=== PATIENT | female | born 1965 | race Caucasian/White ===

== ENCOUNTER → 2016-08-03 | Outpatient (CLI) | payer OTHER ==
[~2016-08-03] MED LIST: CHOL10003 PO; CYCL10TA2 PO; HYDR-2666 PO; IBUP-1060 PO; IOHEXOL 180 MG/ML 10 ML VIAL. ONE; PARO40TA45 PO; POTA10CA PO; methylPREDNISolone ACETATE 40 MG/ML VIAL. ONE; methylPREDNISolone ACETATE 80 MG/ML VIAL. ONE
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
== END | disposition home or self-care (01) ==
LOC: PNCL 07:19
PROVIDERS: ATTEND Anesthesiology
DX: M51.16 Intervertebral disc disorders with radiculopathy, lumbar region (principal); J44.9 Chronic obstructive pulmonary disease, unspecified; M19.90 Unspecified osteoarthritis, unspecified site; F17.200 Nicotine dependence, unspecified, uncomplicated; Z90.710 Acquired absence of both cervix and uterus; Z83.3 Family history of diabetes mellitus
CPT/HCPCS: 62323; J1030; J1040

== ENCOUNTER → 2016-08-17 | Outpatient (CLI) | payer OTHER ==
--- NOTE | 2016-08-17 12:40 | PAIN ---
DATE OF SERVICE: 08/17/2016 DIAGNOSES: 1. Lumbar radiculopathy with lumbar degenerative disk disease. 2. Cervical radiculopathy with cervicalgia. HISTORY OF PRESENT ILLNESS: A 51-year-old female who returns for followup status post lumbar epidural steroid injection x 1. The patient reports about 50% improvement overall doing much better. She is very pleased with the progress of pain in low back, legs significantly decreased. The patient reports some pain in the base of the neck and shoulders, which is much more noticeable now and also some migraine headaches, which have been more frequent otherwise doing well with increased activity with greater ease and comfort and sleeping better at night. We discussed our last visit, the possibility of evaluating her cervical spine as well. She does have some significant radicular symptoms in the bilateral upper extremities, worse on the right. The patient reports her pain as a 3 on a scale of 10 and reports it is a constant aching pain in the base of the neck and shoulders as well as in the low back and legs. The patient reports no new motor or sensory deficits. No new bowel or bladder incontinence or other complaints. PHYSICAL EXAMINATION: VITAL SIGNS: The patient's blood pressure is 159/95, pulse is 91, respirations 20, temperature 98.9 degrees Fahrenheit. Weight is 181 pounds. GENERAL: The patient is awake, alert, oriented, appropriate, very pleasant demeanor. HEENT: Head shows normocephalic, atraumatic. Extraocular movements are intact, symmetrical. Oral cavity, mucous membranes are moist and pink. Dentition is intact. NECK: Shows anterior throat supple without palpable lymphadenopathy noted. Swallow reflex is symmetrical. CHEST: Shows normal on inspection. Breath sounds clear to auscultation bilaterally. HEART: Shows S1 and S2. Clear. No murmurs auscultated. ABDOMEN: Obese, soft, nontender, nondistended. No palpable organomegaly is noted. No rebound or guarding demonstrated. BACK: Shows spine grossly midline. Cervical paraspinous muscle shows some moderate tenderness with palpation in the inferior and lateral aspect of the trapezius as well as the inferior cervical paraspinous musculature, which is diffusely tender, but very firm and with more tenderness in the lateral trapezius, slightly more on the right than the left, but without radiation. Lower back shows moderate tenderness with palpation in the lower lumbar paraspinous musculature only again diffusely without radiation as well. EXTREMITIES: The patient's lower extremities showed deep tendon reflexes at 1+ in the patellar and tendo calcaneus tendons. Motor exam is strong with approximately 4 on a scale of 5 with right dorsiflexion, extension and 5/5 on the left. PLAN: Options were discussed with the patient. We will proceed with a second lumbar epidural steroid injection today with fluoroscopic guidance. Risks were again discussed including, but not limited to bleeding, infection, possibility of epidural hematoma, subsequent neurologic compromise, dural puncture, headaches, spinal cord and/or nerve damage, side effects of steroid medication and poor results regarding pain control. The patient understands and wishes to proceed. The patient will return to clinic in approximately 2 weeks for followup. She was counseled as to return appointment, activity level and side effects to be aware of, we will also order new MRI scan the cervical spine to better evaluate radicular symptoms ____ region as well. DIAGNOSIS: Lumbar radiculopathy with lumbar degenerative disk disease. PROCEDURE: Lumbar epidural steroid injection in translaminar approach at the L5-S1 level using C-arm fluoroscopic guidance, under sterile prep and drape and using local anesthetic. MEDICATIONS INJECTED: 120 mg Depo-Medrol plus 10 mL of preservative-free normal saline and 2 mL of Isovue contrast. CONDITION AT DISCHARGE: Stable. The patient tolerated procedure well, had no complications. KELLI PURVIS MD DR: NASIM/verónica JOB#: [id number] / [id number]
== END | disposition home or self-care (01) ==
LOC: PNCL 07:58
PROVIDERS: ATTEND Anesthesiology
DX: M51.16 Intervertebral disc disorders with radiculopathy, lumbar region (principal); M54.12 Radiculopathy, cervical region
CPT/HCPCS: 62323; J1030; J1040

== ENCOUNTER → 2016-08-24 | Outpatient (CLI) | payer OTHER ==
[~2016-08-24] MED LIST changes: -IOHEXOL 180 MG/ML 10 ML VIAL. ONE; -methylPREDNISolone ACETATE 40 MG/ML VIAL. ONE; -methylPREDNISolone ACETATE 80 MG/ML VIAL. ONE
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
== END | disposition home or self-care (01) ==
LOC: KCIC MRI 07:57
PROVIDERS: ATTEND Anesthesiology
DX: M47.22 Other spondylosis with radiculopathy, cervical region (principal); M41.83 Other forms of scoliosis, cervicothoracic region
CPT/HCPCS: 72141

== ENCOUNTER → 2016-08-31 | Outpatient (CLI) | payer OTHER ==
[~2016-08-31] MED LIST changes: +IOHEXOL 180 MG/ML 10 ML VIAL. ONE; +methylPREDNISolone ACETATE 40 MG/ML VIAL. ONE; +methylPREDNISolone ACETATE 80 MG/ML VIAL. ONE
--- NOTE | 2016-08-31 23:23 | PAIN ---
DATE OF SERVICE: 08/31/2016 DIAGNOSES: 1. Lumbar radiculopathy with lumbar degenerative disk disease. 2. Cervical radiculopathy with cervicalgia. HISTORY OF PRESENT ILLNESS: The patient is a 51-year-old female who returns for followup status post lumbar epidural steroid injection x 2. The patient did very well with this, reports about a 75% or more decrease in pain in her low back and legs, doing much better in this regards, still having some cramps in her toes; however, which is problematic and her main complaint today is neck and bilateral upper extremity pain, shoulders and upper extremities. The patient reports somewhat worse on the right than the left with radiation to the right arm and into the forearm occasionally, but much more noticeable now that her back is doing much better. The patient reports the pain in her neck ranges from 4-6 on a scale of 10 and is currently at 4 today and describes as aching, burning, sharp, dull, alternating, tight, cramping, burning, radiating, and constant. The patient reports no new motor or sensory deficits or other complaints. We did do an MRI scan of her cervical spine showing some generalized degenerative changes without significant stenosis or neural foraminal compromise. PHYSICAL EXAMINATION: VITAL SIGNS: Today, the patient's blood pressure 129/78, pulse 73, respirations are 18, and temperature 98.2 degrees Fahrenheit. Weight is 182 pounds. GENERAL: The patient is awake, alert, oriented, appropriate, very pleasant demeanor. HEENT: Shows normocephalic and atraumatic. Extraocular movements are intact and symmetrical. Oral cavity, mucous membranes are moist and pink. Dentition is intact. NECK: Shows anterior throat supple without palpable lymphadenopathy noted. Swallow reflex is symmetrical. CHEST: Shows normal on inspection. Breath sounds are clear to auscultation bilaterally. HEART: Shows S1 and S2 clear. ABDOMEN: Soft, nontender, and nondistended. No palpable organomegaly is noted. No rebound or guarding demonstrated. BACK: Shows spine grossly in the midline. Lumbar paraspinous muscle shows some very mild tenderness with palpation, but symmetrical. The patient's neck shows posterior cervical musculature moderately tender with palpation bilaterally in the posterior paraspinous musculature, but without atrophy or hypertrophy. The patient has significant tenderness with palpation in the superior medial and lateral trapezius greater on the right than the left, again symmetrical without specific trigger points or radiation of pain. The patient shows good rotational motion, but somewhat guarded with right and left lateral rotation as well as extension, but not with forward flexion. EXTREMITIES: Upper extremity showed deep tendon reflexes at 2+ in the biceps and triceps tendons. Motor exam is 5/5 with vial gauger strength, biceps and triceps flexion and equal. Options were discussed with the patient and the patient's old chart was reviewed as her current medication regimen and updated. Current review of systems updated today as well. We will proceed with a cervical epidural steroid injection with fluoroscopic guidance. Risks were again discussed including, but not limited to bleeding, infection, possibility of epidural hematoma, subsequent neurologic compromise, dural puncture, headaches, spinal cord and/or nerve damage, side effects of steroid medication and poor results regarding pain control. The patient understands and wishes to proceed. The patient will return to clinic in approximately 2 weeks for followup. She was counseled on return appointment, activity level and side effects to be aware of. DIAGNOSES: Cervical radiculopathy with cervical degenerative change and cervicalgia. PROCEDURE: Cervical epidural steroid injection using a C-arm fluoroscopic guidance under sterile prep and drape using local anesthetic at the C6-C7 level using a translaminar approach. MEDICATION INJECTED: Depo-Medrol 120 mg plus 5 mL of preservative-free normal saline and 2 mL of Isovue contrast. CONDITION ON DISCHARGE: Stable. The patient tolerated procedure well, had no complications. KELLI PURVIS MD DR: NASIM/verónica JOB#: [id number] / [id number]
== END | disposition home or self-care (01) ==
LOC: PNCL 07:39
PROVIDERS: ATTEND Anesthesiology
DX: M50.123 Cervical disc disorder at C6-C7 level with radiculopathy (principal)
CPT/HCPCS: 62321; J1030; J1040; 62323

== ENCOUNTER → 2016-11-09 | Outpatient (CLI) | payer OTHER ==
[~2016-11-09] MED LIST changes: -HYDR-2666 PO; +HYDR-2758 PO; -IOHEXOL 180 MG/ML 10 ML VIAL. ONE; -PARO40TA45 PO; +PARO40TA61 PO; -POTA10CA PO; +POTASSIUM CHLO10 MEQ PO; -methylPREDNISolone ACETATE 40 MG/ML VIAL. ONE; -methylPREDNISolone ACETATE 80 MG/ML VIAL. ONE
== END | disposition home or self-care (01) ==
LOC: PNCL 07:54
PROVIDERS: ATTEND Anesthesiology
DX: M51.16 Intervertebral disc disorders with radiculopathy, lumbar region (principal); M47.22 Other spondylosis with radiculopathy, cervical region
CPT/HCPCS: 99212

== ENCOUNTER → 2017-02-01 | Outpatient (CLI) | payer OTHER ==
[~2017-02-01] MED LIST changes: +BACL10TA PO; +GABA-586 PO; +TIOT18CA IH; +VITA0.4T8 PO
--- NOTE | 2017-02-01 13:04 | PAIN ---
DATE OF SERVICE: 02/01/2017 DATE OF SERVICE: 02/01/2017 DIAGNOSES: 1. Lumbar radiculopathy with lumbar degenerative disk disease. 2. Cervical radiculopathy with cervicalgia HISTORY OF PRESENT ILLNESS: This is a 51-year-old female who returns for followup status post both lumbar and cervical epidural steroid injections. Last lumbar injection was on 08/17/2016. The patient reports she did very well with about 75% improvement for almost 4 months following the injection. The patient reports that the pain is returning now in the low back, bilateral lower extremities, mostly radiating to posterior gluteus, posterior thighs, posterior lower legs and in L5-S1 distribution bilaterally, left equal to right. Essentially the patient reports it is worse with walking and standing, change in positions, radiating, constant, severe at times, tingling, burning with cramping, tight, shooting, aching pain, also has some tingling in the upper extremities and lower extremities. The patient reports the pain is 5 on a scale of 10 at its worst, 3 on average, and is about a 2 on a scale of 10 at its least. The patient reports when she is lying down in a recliner that is a better position for her. She feels most comfortable in that position. The patient reports it wakes her from sleep occasionally, but not every night. She can reposition, take pain medication, or get out of bed, and is able to get back to sleep. The patient reports no new motor or sensory deficits, no new bowel or bladder incontinence or other complaints. PAST MEDICAL HISTORY: Significant for COPD, emphysema, headaches, arthritis. PREVIOUS SURGERY: , hysterectomy, tonsillectomy. ALLERGIES: The patient is ALLERGIC TO XANAX AND IVORY SOAP. CURRENT MEDICATIONS: Include hydrocodone, cyclobenzaprine, promethazine, Paxil, Wellbutrin, Naprosyn and we have just added gabapentin 100 mg daily at night. FAMILY HISTORY: Significant for cancer, mental illness, diabetes and heart disease. SOCIAL HISTORY: The patient does not drink alcohol. She does smoke and is trying to quit, less than a pack a day now, , lives with her spouse and 1 grandchild who is 4 years old, who she is the primary caregiver and lives locally. The patient is employed currently. REVIEW OF SYSTEMS: The patient's review of systems is positive for those items mentioned in history of present illness. All systems reviewed and otherwise negative. It is complete, full and well documented on the patient's chart. PHYSICAL EXAMINATION: VITAL SIGNS: The patient's blood pressure is 126/87, pulse is 90, respirations 20, temperature 98.4 degrees Fahrenheit. Height 5 feet 8 inches, weighs 193 pounds. GENERAL: The patient is awake, alert, oriented, appropriate, very pleasant demeanor. HEENT: Head shows normocephalic, atraumatic. Extraocular movements are intact, symmetrical. Oral cavity, mucous membranes are moist and pink. NECK: Shows anterior throat supple without palpable lymphadenopathy noted. Swallow reflex is symmetrical. Neck shows full rotational motion of cervical spine with some minor tenderness with extension, but not with forward flexion. CHEST: Shows normal on inspection. Breath sounds are clear bilaterally. HEART: Shows S1 and S2 clear. No murmurs auscultated. ABDOMEN: Soft, obese, nontender, nondistended. No palpable organomegaly is noted. No rebound or guarding. BACK: Shows spine grossly midline. Normal appearing cervical lordotic curvature, thoracic kyphotic curvature, and lumbar lordotic curvature with inspection shows symmetrical musculature throughout the cervical, thoracic, paraspinous muscles in the lumbar distribution. With palpation shows some moderate tenderness at the inferior aspect of the cervical paraspinous musculature, but it is symmetrical. Again patient shows good rotational motion of cervical spine. Low back shows some moderate tenderness to palpation in the lower lumbar distribution bilaterally without radiation, without trigger points, without asymmetry. The patient shows full rotational motion of lumbar spine, both laterally greater than 10 degrees right and left as well as extension greater than 10 degrees, forward flexion at 45 degrees without difficulty. The patient's lower extremities showed deep tendon reflexes 1+ in the patellar and tendo calcaneus tendons. Motor exam is strong with 5/5 dorsiflexion and extension. The patient does have positive straight leg raise bilaterally at about 30-45 degrees, which is decreased with knee flexion, but not relieved. It is equal right and left. Essentially, the patient reports no tenderness with Gaenslen's and Kayode's maneuvers, which are negative bilaterally. EXTREMITIES: Upper extremities show deep tendon reflexes 2+ in the biceps and triceps tendons. Motor exam is strong with sheet metal fabricator strength rated at 5/5 as is biceps and triceps flexion. Peripheral pulses are 2+ radial, 1+ posterior tibial and dorsalis pedis pulses. No peripheral edema is noted bilaterally throughout. PLAN: Options were discussed with the patient and the patient's old chart was reviewed as her current medication regimen updated. Current review of systems updated today as noted and we will preauthorize the patient for a lumbar epidural steroid injection. She did very well with these in the past with about 4 months improvement of 75% or better in the pain. Now, radiating to once again returning in the L5-S1 dermatomal distribution bilaterally in the lower extremities, left essentially equal to the right. The patient will wait for preauthorization. We will try Medrol Dosepak in the meantime. The patient was given instruction as well as side effects to be aware of with medication and will follow up once preauthorization is obtained for a lumbar epidural steroid injection. KELLI PURVIS MD DR: NASIM/verónica JOB#: [id number] / [id number]
== END | disposition home or self-care (01) ==
LOC: PNCL 10:38
PROVIDERS: ATTEND Anesthesiology
DX: M51.16 Intervertebral disc disorders with radiculopathy, lumbar region (principal); F17.210 Nicotine dependence, cigarettes, uncomplicated
CPT/HCPCS: 99212

== ENCOUNTER → 2017-02-15 | Outpatient (CLI) | payer OTHER ==
[~2017-02-15] MED LIST changes: +IOHEXOL 180 MG/ML 10 ML VIAL. ONE; +methylPREDNISolone ACETATE 40 MG/ML VIAL. ONE; +methylPREDNISolone ACETATE 80 MG/ML VIAL. ONE
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
== END | disposition home or self-care (01) ==
LOC: PNCL 11:44
PROVIDERS: ATTEND Anesthesiology
DX: M51.16 Intervertebral disc disorders with radiculopathy, lumbar region (principal); Z88.6 Allergy status to analgesic agent; Z88.8 Allergy status to other drugs, medicaments and biological substances
CPT/HCPCS: 62323; J1030; J1040

== ENCOUNTER → 2017-03-01 | Outpatient (CLI) | payer OTHER ==
[~2017-03-01] MED LIST changes: -IOHEXOL 180 MG/ML 10 ML VIAL. ONE; -methylPREDNISolone ACETATE 40 MG/ML VIAL. ONE; -methylPREDNISolone ACETATE 80 MG/ML VIAL. ONE
== END | disposition home or self-care (01) ==
LOC: PNCL 08:09
PROVIDERS: ATTEND Anesthesiology
DX: M51.36 Other intervertebral disc degeneration, lumbar region (principal)
CPT/HCPCS: 99212

== ENCOUNTER → 2017-03-01 | Outpatient (CLI) | payer OTHER ==
--- NOTE | 2017-03-01 09:29 | PAIN ---
DATE OF SERVICE: 03/01/2017 DIAGNOSES: 1. Lumbar radiculopathy with lumbar degenerative disk disease. 2. Cervical radiculopathy with cervicalgia. HISTORY OF PRESENT ILLNESS: The patient is a 51-year-old female who returns for followup status post lumbar epidural steroid injection x 1. The patient reports about 65% improvement initially for the first week and about 50% improvement for another week. After the 2-week period, the pain has been returning now at about 25% improvement overall in about 3 weeks now. The patient reports that she was doing very well initially with decreased pain in low back and her bilateral lower extremities, again worse on the right than the left, but pain in the bilateral lower extremities radiating into the posterior gluteus, posterior thigh, posterior lower leg, lateral lower leg as well as on top of the foot in essentially L5-S1 distribution, again worse on the right side. The patient reports radiating constant, becomes unbearable at times now over the past few days and cramping, burning, tingling, aching, sharp, tight and shooting pain rated at a 4 on a scale 10 at its worse, it is 2-3 on average and at least a 2 today. The patient reports that she is doing very well after the injection, but the pain is now returning with increased activity. The patient reports it wakes her from sleep occasionally, sleeps about 4 to 5 hours a night. She can easily change positions. She still sleeps in a reclining chair. The patient reports no new motor or sensory deficits, no new bowel or bladder incontinence or other complaints. PHYSICAL EXAMINATION: VITAL SIGNS: Today, the patient's blood pressure 122/43, pulse 70, respirations 16, temperature 98.6 degrees Fahrenheit, height 5 feet 8 inches, weight is 196 pounds. GENERAL: Awake, alert, oriented, appropriate, very pleasant demeanor. HEENT: Head shows normocephalic, atraumatic. Extraocular movements intact, symmetrical. Oral cavity, mucous membranes are moist and pink. Dentition is intact. CHEST: Shows normal on inspection. Breath sounds are clear to auscultation bilaterally. HEART: Shows S1 and S2 clear. No murmurs auscultated. ABDOMEN: Soft, nontender, nondistended. BACK: Shows spine grossly in midline. Lumbar paraspinous musculature shows some [id number] tenderness with palpation diffusely bilaterally without atrophy, hypertrophy. The patient shows good rotational motion of the lumbar spine, both laterally as well as extension and flexion without significant difficulty. LOWER EXTREMITIES: Showed deep tendon reflexes at 2+ in the patellar, 1+ tendo calcaneus tendons. Motor exam is 5/5 with dorsiflexion, extension, quadriceps and hamstring flexion. Peripheral pulses are 1+ posterior tibial and symmetrical. Straight leg raise noted to be positive bilaterally about 30-45 degrees on the right and 45 degrees on the left and both are decreased with knee flexion. Options were discussed with the patient and the patient's old chart was reviewed as her current medication regimen updated. Current review of systems updated today as well, and we will proceed with a preauthorization for a second lumbar epidural steroid injection. She did very well initially with the first month, again with radicular pain, right greater than left in the L5-S1 distribution. The patient will continue doing some stretching and strengthening exercises as she is doing already and walking daily. I encouraged her to increase activity as tolerated. She will return to clinic once authorization is obtained for a second lumbar epidural steroid injection at that time. KELLI PURVIS MD DR: NASIM/verónica JOB#: [id number] / [id number]
--- NOTE | 2017-03-01 10:25 | RAD ---
DATE: 03/01/2017 EXAM: DIGITAL DIAGNOSTIC BILATERAL HISTORY: Dimpling of the breasts. COMPARISON: Outside examination 4 years ago This study was interpreted with the benefit of Computerized Aided Detection (CAD). FINDINGS: Breast Density: FATTY The Breast Parenchyma is primarily fatty replaced. Breast parenchyma level density A.. No mass is seen. No suspect calcifications are seen. There is not been a significant change compared to the previous exam IMPRESSION: Benign findings BI-RADS CATEGORY: 2 BENIGN FINDING(S) RECOMMENDED FOLLOW-UP: 12M 12 MONTH FOLLOW-UP PQRS compliance statement: Patient information was entered into a reminder system with a target due date 03/01/2018 for the next mammogram. Mammography is a sensitive method for finding small breast cancers, but it does not detect them all and is not a substitute for careful clinical examination. A negative mammogram does not negate a clinically suspicious finding and should not result in delay in biopsying a clinically suspicious abnormality. "Our facility is accredited by the [employer] Mammography Program."
== END | disposition home or self-care (01) ==
LOC: MAMMO 09:46
PROVIDERS: ATTEND Family Medicine
DX: M51.16 Intervertebral disc disorders with radiculopathy, lumbar region (principal); R23.4 Changes in skin texture; R92.2 Inconclusive mammogram
CPT/HCPCS: G0204; 77066

== ENCOUNTER → 2017-03-29 | Outpatient (CLI) | payer OTHER ==
--- NOTE | 2017-03-29 18:57 | PAIN ---
DATE OF SERVICE: 03/29/2017 DIAGNOSES: 1. Lumbar radiculopathy with lumbar degenerative disk disease. 2. Cervical radiculopathy with cervicalgia. HISTORY OF PRESENT ILLNESS: The patient is a 51-year-old female who returns for followup status post lumbar epidural steroid injections x 2. The patient reports about 75% improvement initially with the last injection in 03/15. Over the past 3 weeks, the pain is beginning to return, but only very gradually and is still about a 50% improvement overall. The patient reports still pain in the low back, worse on the right side, but in the bilateral lower extremities, across the low back and the posterior gluteus, posterior thigh, posterior calf, lateral thighs as well with some cramping in the left leg, but pain is worse on the right leg. The patient reports as aching, sharp, dull, tight, shooting, cramping, stabbing, burning, tingling, constant and becoming more constant, radiating somewhat severe and becoming unbearable at times, usually only with walking, standing, changing positions; better with sitting or lying down, but awakens her from sleep occasionally, not every night. She needs the repositioning to get back to sleep without difficulty and she has been sleeping in a recliner over the past few days as the pain has been returning to a fairly significant extent. The patient reports it is a 4 on a scale of 10 at its worst, is a 3-4 on average and 2-3 at its least and is a 3 this morning. The patient reports no new motor or sensory deficits, no new bowel or bladder incontinence or other complaints. PHYSICAL EXAMINATION: VITAL SIGNS: The patient's blood pressure 121/77, pulse 75, respirations 16, temperature is 98.8 degrees Fahrenheit. Weight is 194 pounds. GENERAL: The patient is awake, alert, oriented, appropriate, has a very pleasant demeanor. HEENT: Shows normocephalic, atraumatic. Extraocular movements are intact and symmetrical. Oral cavity shows mucous membranes are moist and pink. Dentition is intact. NECK: Shows anterior throat supple without palpable lymphadenopathy noted. Swallow reflex is symmetrical. CHEST: Shows normal on inspection. Breath sounds are clear to auscultation bilaterally. HEART: Shows S1 and S2 clear. ABDOMEN: Soft, nontender, nondistended. No palpable organomegaly is noted. No rebound or guarding demonstrated. MUSCULOSKELETAL: Back shows spine grossly in the midline. Normal appearing thoracic kyphosis and lumbar lordotic curvatures. Lumbar paraspinous musculature shows some moderate tenderness with palpation, but is symmetrical on inspection. No radiation of pain; however, no trigger points. The patient has good rotational motion both laterally as well as extension and flexion of lumbar spine without significant pain reported. Lower extremities show deep tendon reflexes at 1+ in the patellar and tendo-calcaneus tendons and are equal. Motor exam is strong with 5/5 dorsiflexion, extension, quadriceps and hamstring flexion. Straight leg raise noted to be mildly positive on the right side about 45 degrees, but is decreased with knee flexion. Left side is negative. Gaenslen's and Kayode's maneuvers are negative bilaterally. PLAN: Options were discussed with the patient and the patient's old chart was reviewed as her current medication regimen and updated. Current review of systems updated today as well and we will preauthorize the patient for a third lumbar epidural steroid injection, she did very well with the first 2 with some pain returning in a radicular fashion mostly in the L5-S1 dermatomes, greater on the right than the left, but present bilaterally. The patient will continue to do exercise and stretching and walking as best she can as she is doing this daily, even though it is becoming a shorter distance with pain. She will continue to do this. We will have her followup and plan on third injection in approximately 1 week. KELLI PURVIS MD DR: NASIM/verónica JOB#: [id number] / [id number]
== END | disposition home or self-care (01) ==
LOC: PNCL 08:06
PROVIDERS: ATTEND Anesthesiology
DX: M51.16 Intervertebral disc disorders with radiculopathy, lumbar region (principal)
CPT/HCPCS: 99212

== ENCOUNTER → 2017-04-12 | Outpatient (CLI) | payer OTHER ==
[~2017-04-12] MED LIST changes: +IOHEXOL 180 MG/ML 10 ML VIAL. ONE; +methylPREDNISolone ACETATE 40 MG/ML VIAL. ONE; +methylPREDNISolone ACETATE 80 MG/ML VIAL. ONE
--- NOTE | 2017-04-12 17:49 | PAIN ---
DATE OF SERVICE: 04/12/2017 DIAGNOSES: 1. Lumbar radiculopathy with lumbar degenerative disk disease. 2. Cervical radiculopathy with cervicalgia. HISTORY OF PRESENT ILLNESS: The patient is a 51-year-old female who returns for followup status post lumbar epidural steroid injection x 2. She did very well 75% improvement overall, still with some pain in the low back, bilateral lower extremities, somewhat worse on the right than the left, but had been doing fairly well. Pain returning again low back, bilateral lower extremities, radiating from the lumbar spine into the posterior gluteus, posterior lateral thighs, posterior lower legs into the calf, into the foot with tingling and numbness in the toes as well. The reports it is aching, sharp, dull, tight, shooting, stabbing, cramping, burning with tingling in the toes, radiating, becoming more severe, more constant and unbearable at times. The patient reports it is a 4 on a scale of 10 at its worst, 3 on average, and a 3 today and at its least. The patient reports it does not awaken her from sleep; however, she feels much better with lying down, sitting and worse with standing, walking, changing positions or bending, stooping or repetitive bending and flexing at the waist. The patient reports no new motor or sensory deficits, no new bowel or bladder incontinence or other complaints. PHYSICAL EXAMINATION: VITAL SIGNS: Today, the patient's blood pressure is 136/71, pulse 80, respirations are 16, temperature is 98.6 degrees Fahrenheit, height is 5 feet 7 inches, weighs 196 pounds. GENERAL: The patient is awake, alert, oriented, appropriate, very pleasant demeanor. HEENT: Head shows normocephalic, atraumatic. Extraocular muscles are intact and symmetrical. Oral cavity: Mucous membranes are moist and pink. Dentition is intact. NECK: Shows anterior throat supple without palpable lymphadenopathy noted. Swallow reflex is symmetrical. CHEST: Shows normal on inspection. Breath sounds are clear to auscultation bilaterally. HEART: S1, S2 clear. No murmurs auscultated. ABDOMEN: Soft, nontender, nondistended. No palpable organomegaly is noted. No rebound or guarding demonstrated. BACK: Shows spine grossly in midline, normal-appearing thoracic kyphosis and lumbar lordotic curvature, mild small tattooing in the lumbar distribution. Lumbar paraspinous muscle shows symmetrical on inspection with palpation shows moderate tenderness, but only diffusely bilaterally in the lumbar paraspinous musculature on the lower lumbar distribution without radiation. No tenderness over the spinous processes, sacrum or sacroiliac regions. The patient has good rotational motion of lumbar spine, both laterally greater than 10 degrees right and left as well as extension and forward flexion without difficulty. EXTREMITIES: Lower extremities show deep tendon reflexes 1+ in the patellar and tendo calcaneus tendons are equal. Motor exam is strong with 5/5 dorsiflexion, extension, quadriceps and hamstring flexion and symmetrical as well. Peripheral pulses are 1+ in the posterior tibial and dorsalis pedis pulses. No peripheral edema is noted. No clubbing, no cyanosis. Lower extremities are warm and dry to touch, equal in color and appearance. Options were discussed with the patient. The patient's old chart was reviewed as her current medication regimen and updated. Current review of systems is updated today as well. We will proceed with a third in the series of lumbar epidural steroid injection with fluoroscopic guidance today. Risks were again discussed including, but not limited to bleeding, infection, possibility of epidural hematoma, subsequent neurologic compromise, dural puncture, headaches, spinal cord and/or nerve damage, side effects of steroid medication and poor results regarding pain control. The patient understands and wished to proceed. The patient will return to clinic in approximately 2 weeks for followup. She was counseled on return appointment, activity level and side effects to be aware of. DIAGNOSIS: Lumbar radiculopathy with lumbar degenerative disk disease. PROCEDURES: Lumbar epidural steroid injection, translaminar approach at the L5-S1 level using C-arm fluoroscopic guidance under sterile prep and drape using local anesthetic. MEDICATION INJECTED: A total of 120 mg Depo-Medrol plus 10 mL preservative-free normal saline and 2 mL of Isovue for contrast. CONDITION AT DISCHARGE: Stable. The patient tolerated the procedure well, had no complications. KELLI PURVIS MD DR: NASIM/verónica JOB#: [id number] / [id number]
== END | disposition home or self-care (01) ==
LOC: PNCL 07:55
PROVIDERS: ATTEND Anesthesiology
DX: M51.16 Intervertebral disc disorders with radiculopathy, lumbar region (principal); M54.12 Radiculopathy, cervical region; Z88.8 Allergy status to other drugs, medicaments and biological substances
CPT/HCPCS: 62323; J1030; J1040

== ENCOUNTER → 2017-09-09 | Outpatient (CLI) | payer OTHER | END | disposition home or self-care (01) | LOC: PNCL 08:36 | DX: M51.16 Intervertebral disc disorders with radiculopathy, lumbar region (principal); Z87.891 Personal history of nicotine dependence | CPT/HCPCS: 99212 ==

== ENCOUNTER → 2017-09-20 | Outpatient (CLI) | payer OTHER ==
[~2017-09-20] MED LIST changes: -BACL10TA PO; -CHOL10003 PO; -CYCL10TA2 PO; -GABA-586 PO; -HYDR-2758 PO; -IBUP-1060 PO; +IOHEXOL 180 MG/ML 10 ML VIAL.; -IOHEXOL 180 MG/ML 10 ML VIAL. ONE; -PARO40TA61 PO; -POTASSIUM CHLO10 MEQ PO; -TIOT18CA IH; -VITA0.4T8 PO; +methylPREDNISolone ACETATE 40 MG/ML VIAL.; -methylPREDNISolone ACETATE 40 MG/ML VIAL. ONE; +methylPREDNISolone ACETATE 80 MG/ML VIAL.; -methylPREDNISolone ACETATE 80 MG/ML VIAL. ONE
== END | disposition home or self-care (01) ==
LOC: MRI 08:38
DX: M51.17 Intervertebral disc disorders with radiculopathy, lumbosacral region (principal); M48.07 Spinal stenosis, lumbosacral region; Z88.6 Allergy status to analgesic agent; Z88.8 Allergy status to other drugs, medicaments and biological substances
CPT/HCPCS: 72148; J1030; J1040; Q9965

== ENCOUNTER → 2017-09-20 | Outpatient (CLI) | payer OTHER | END | disposition home or self-care (01) | LOC: PNCL 07:40 | DX: M51.16 Intervertebral disc disorders with radiculopathy, lumbar region (principal); Z88.6 Allergy status to analgesic agent; Z88.8 Allergy status to other drugs, medicaments and biological substances | CPT/HCPCS: 62323 ==

== ENCOUNTER → 2017-10-04 | Outpatient (CLI) | payer OTHER | END | disposition home or self-care (01) | LOC: PNCL 07:29 | DX: M51.16 Intervertebral disc disorders with radiculopathy, lumbar region (principal) | CPT/HCPCS: 99212 ==

== ENCOUNTER → 2017-11-01 | Outpatient (CLI) | payer OTHER ==
[~2017-11-01] MED LIST changes: +LIDOCAINE 1% PF 2 ML VIAL.
== END | disposition home or self-care (01) ==
LOC: PNCL 07:40
DX: M51.16 Intervertebral disc disorders with radiculopathy, lumbar region (principal); Z88.6 Allergy status to analgesic agent; Z88.8 Allergy status to other drugs, medicaments and biological substances
CPT/HCPCS: 62323; J1030; J1040; Q9965

== ENCOUNTER → 2017-11-29 | Outpatient (CLI) | payer OTHER | END | disposition home or self-care (01) | LOC: PNCL 09:05 | DX: M51.16 Intervertebral disc disorders with radiculopathy, lumbar region (principal); Z87.891 Personal history of nicotine dependence | CPT/HCPCS: 99212 ==

== ENCOUNTER → 2017-12-19 | Outpatient (CLI) | payer OTHER ==
[~2017-12-19] MED LIST changes: -LIDOCAINE 1% PF 2 ML VIAL.; +LIDOCAINE 2% PF 2ML VIAL.
== END | disposition home or self-care (01) ==
LOC: PNCL 07:41
DX: M51.16 Intervertebral disc disorders with radiculopathy, lumbar region (principal); Z79.899 Other long term (current) drug therapy; Z88.6 Allergy status to analgesic agent; Z88.8 Allergy status to other drugs, medicaments and biological substances; Z87.891 Personal history of nicotine dependence; J44.9 Chronic obstructive pulmonary disease, unspecified; M51.34 Other intervertebral disc degeneration, thoracic region
CPT/HCPCS: 62323; J1030; J1040; J2001; Q9965

== ENCOUNTER → 2018-06-06 | Outpatient (CLI) | payer OTHER ==
[~2018-06-06] MED LIST changes: +BACL10TA PO; +BUPR150T8 PO; +BUSP10TA PO; +CHOL10003 PO; +CLON0.5T11 PO; +CYCL10TA2 PO; +DIAZ2TAB PO; +GABA300C18 PO; +HYDR-2761 PO; +IBUP-1060 PO; -IOHEXOL 180 MG/ML 10 ML VIAL.; -LIDOCAINE 2% PF 2ML VIAL.; +PARO40TA61 PO; +POTA10TA12 PO; +TIOT18CA IH; +VITA0.4T8 PO; -methylPREDNISolone ACETATE 40 MG/ML VIAL.; -methylPREDNISolone ACETATE 80 MG/ML VIAL.
--- NOTE | 2018-06-06 11:27 | PAIN ---
DATE OF SERVICE: 06/06/2018 PROGRESS NOTE FOR PAIN CLINIC DIAGNOSES: 1. Lumbar radiculopathy with lumbar degenerative disk disease. 2. Cervical radiculopathy with cervicalgia. HISTORY OF PRESENT ILLNESS: The patient is a 53-year-old female who returns for followup status post lumbar epidural steroid injections, last seen 12/19/2017. The patient did very well with 70% improvement after the injection with pain in the low back and into the bilateral lower extremities, right greater than left in the L5-S1 dermatomal distribution. The patient reports the pain is returning. She has been to get back sooner but has been busy with work and other activities. Initially, she was doing very well with working with greater comfort and ease, walking greater distances, sleeping better at night and now the pain is beginning awaken her from sleep, sporadically but not every night. The patient reports the pain is an 8 on a scale of 10 at its worst, 7 on average, 7 at its least and is a 7 today. The patient reports no new motor or sensory deficits and no new bowel or bladder incontinence. She did have a neurosurgical consultation with a neurosurgeon at , who is not recommending surgery at this time secondary to significant arthritic conditions in the spine. The patient reports the pain is aching, sharp, dull, tight, shooting, burning, tingling, stabbing, radiating, becoming severe, more recently and unbearable over the last month or so in the low back, bilateral posterior gluteus, posterior thighs, posterior calves, again worse on the right than the left. The patient is not using any assistive devices but is limping noticeably when walking. PHYSICAL EXAMINATION: VITAL SIGNS: The patient's blood pressure 145/80, pulse 83, respirations 20 and temperature 98.9 degrees Fahrenheit. Height is 5 feet 8 inches and weight is 208 pounds. GENERAL: The patient is awake, alert, oriented, appropriate and very pleasant demeanor. HEENT: Head shows normocephalic and atraumatic. Extraocular movements are intact and symmetrical. Oral cavity: Mucous membranes moist and pink. Dentition is intact. NECK: Shows anterior throat supple without palpable lymphadenopathy noted. Swallow reflex symmetrical. CHEST: Shows normal on inspection. Breath sounds clear to auscultation bilaterally. HEART: Shows S1 and S2 clear. No murmurs auscultated. ABDOMEN: Soft, nontender and nondistended. No palpable organomegaly is noted. No rebound or guarding demonstrated. BACK: Shows spine grossly in the midline. Normal-appearing cervical lordotic curvature, slight increase in thoracic kyphosis and some minor flattening of the lumbar lordotic curvature. Lumbar paraspinous muscle shows symmetrical on inspection. On palpation shows moderate tenderness throughout the upper, middle, lower distribution of the paraspinous muscles bilaterally. The patient's back shows good rotational motion, however, both laterally as well as extension and flexion without significant increase in pain. EXTREMITIES: Lower extremities show deep tendon reflexes at 2+ in the patellar, 1+ tendo-calcaneus tendons. Motor is strong with 5/5 dorsiflexion and extension in the ankle and 4/5 at quadriceps and hamstring flexion bilaterally as well. Peripheral pulses are 1+ posterior tibia. No peripheral edema is noted. The patient does have a minor positive straight leg raise about 40 degrees on the right side, but not the left, which decreased with knee flexion. Gaenslen's and Kayode's maneuvers are negative bilaterally. Options were discussed with the patient. The patient's old chart was reviewed as well as her current medication regimen updated. Current review of systems updated today as well. We will preauthorize the patient for a lumbar epidural steroid injection. She has done very well with these in the past with the first one by 70% improvement for the first looks like about 8 weeks past 2 months after the injection. The patient also will be enrolled in physical therapy with water pool hydrotherapy as she is looking to lose some weight as well and to increase her ability for flexion and extension of the lumbar spine. Again, significant axial loading pain with posterior extension of the lumbar spine but better with forward flexion. We will preauthorize the patient for a L5-S1 lumbar epidural steroid injection as she is having significant radiculopathy in the right greater than left leg but present bilaterally. The patient will return to the clinic once preauthorization is obtained and we will order physical therapy for pool therapy treatment in the meantime. KELLI PURVIS MD DR: NASIM/verónica JOB#: [id number] / [id number]
== END | disposition home or self-care (01) ==
LOC: PNCL 08:04
PROVIDERS: ATTEND Anesthesiology
DX: M51.16 Intervertebral disc disorders with radiculopathy, lumbar region (principal)
CPT/HCPCS: G0463

== ENCOUNTER → 2018-06-20 | Outpatient (CLI) | payer OTHER ==
[~2018-06-20] MED LIST changes: +IOHEXOL 180 MG/ML 10 ML VIAL. ONE; +VARE1TAB21 PO; +methylPREDNISolone ACETATE 40 MG/ML VIAL. ONE; +methylPREDNISolone ACETATE 80 MG/ML VIAL. ONE
--- NOTE | 2018-06-20 12:58 | PAIN ---
DATE OF SERVICE: 06/20/2018 PROGRESS NOTE FOR PAIN CLINIC DIAGNOSES: 1. Lumbar radiculopathy with lumbar degenerative disk disease. 2. Cervical radiculopathy with cervicalgia. HISTORY OF PRESENT ILLNESS: The patient is a 53-year-old female who returns for followup status post lumbar epidural steroid injections and preauthorization. Most recently, the patient did very well about 70% improvement after her last injections, it has been several months. The patient reports pain in low back, bilateral lower extremities, worse on the right than the left, posterior gluteus, posterior thighs, posterior calves, radiating to the feet, worse with standing, walking, changing positions. The patient reports it is aching, sharp, dull, tight, shooting, cramping pain, stabbing, tingling, burning, becoming more constant and radiating down the leg. The patient reports it is an 8-9 on a scale of 10 at its worst, 8 on average, is 7-8 at its least and is an 8 today. The patient reports it awakens her from sleep about every 6 hours, worse with walking, standing, change in positions, initially was doing better with distance walking and doing work activities, household activities as well, now returned. The patient reports no new motor or sensory deficits, no new bowel or bladder incontinence or other complaints. PHYSICAL EXAMINATION: VITAL SIGNS: The patient's blood pressure 130/88, pulse 98, respirations 18, temperature 98.5 degrees Fahrenheit, height is 5 feet 4 inches, weight is 207 pounds. GENERAL: The patient is awake, alert, oriented, appropriate, very pleasant demeanor. HEENT: Head shows normocephalic, atraumatic. Extraocular movements are intact and symmetrical. Oral cavity: Mucous membranes are moist and pink. Dentition intact. NECK: Shows anterior throat supple without palpable lymphadenopathy noted. Swallow reflex symmetrical. CHEST: Shows normal on inspection. Breath sounds clear to auscultation bilaterally. HEART: Shows S1, S2 clear. No murmurs auscultated. ABDOMEN: Soft, nontender, nondistended. No palpable organomegaly is noted. No rebound or guarding demonstrated. BACK: Shows spine grossly in the midline. Slight exaggeration of thoracic kyphosis and minor flattening of lumbar lordotic curvature. Lumbar paraspinous muscle shows symmetrical on inspection, on palpation shows some moderate tenderness diffusely throughout the upper, middle and lower distribution of paraspinous muscles. The patient has good rotational motion, however, both laterally greater than 10 degrees right and left as well as extension greater than 10 degrees, forward flexion 45 degrees without significant difficulty. No tenderness over the sacrum or sacroiliac regions or the spinous processes. EXTREMITIES: The patient's lower extremities show deep tendon reflexes at 2+ in the patella and 1+ tendo calcaneus tendons. Motor exam is strong with 5/5 dorsiflexion, extension approximately 4-5 quadriceps and hamstring flexion, but symmetrical. Peripheral pulses are 1+ posterior tibia. No peripheral edema is noted bilaterally. PLAN: Options were discussed with the patient. The patient's old chart was reviewed as her current medication regimen updated. Current review of systems updated today as well. We will proceed with a first in this series of lumbar epidural steroid injection today with fluoroscopic guidance. Risks were again discussed including, but not limited to bleeding, infection, possibility of epidural hematoma, subsequent neurologic compromise, dural puncture, headaches, spinal cord and/or nerve damage, side effects of steroid medication and poor results regarding pain control. The patient understands and wished to proceed. The patient to return to clinic in approximately 2 weeks for followup, was counseled on return appointment, activity level and side effects to be aware of. DIAGNOSES: Lumbar radiculopathy with lumbar degenerative disk disease. PROCEDURES: Lumbar epidural steroid injection, translaminar approach at L5-S1 level using C-arm fluoroscopic guidance under sterile prep and drape using local anesthetic. MEDICATION INJECTED: A total of 120 mg Depo-Medrol plus 10 mL of preservative-free normal saline and 2 mL of and Isovue for contrast. CONDITION AT DISCHARGE: Stable. The patient tolerated the procedure well, had no complications. KELLI PURVIS MD DR: NASIM/verónica JOB#: [id number] / [id number]
== END | disposition home or self-care (01) ==
LOC: PNCL 08:06
PROVIDERS: ATTEND Anesthesiology
DX: M51.16 Intervertebral disc disorders with radiculopathy, lumbar region (principal); M54.2 Cervicalgia; Z98.890 Other specified postprocedural states; Z88.8 Allergy status to other drugs, medicaments and biological substances
CPT/HCPCS: 62323; J1030; J1040; Q9965

== ENCOUNTER → 2018-07-04 | Outpatient (CLI) | payer OTHER ==
[~2018-07-04] MED LIST changes: -IOHEXOL 180 MG/ML 10 ML VIAL. ONE; -methylPREDNISolone ACETATE 40 MG/ML VIAL. ONE; -methylPREDNISolone ACETATE 80 MG/ML VIAL. ONE
--- NOTE | 2018-07-04 19:46 | PAIN ---
DATE OF SERVICE: 07/04/2018 DIAGNOSES: 1. Lumbar radiculopathy lumbar degenerative disk disease. 2. Cervical radiculopathy with cervical degenerative disk disease. HISTORY OF PRESENT ILLNESS: The patient is a 53-year-old female who returns for followup status post lumbar epidural steroid injection x 1 this series, reports about a 75% improvement, still doing well with the pain in her low back and lower extremities. The patient reports doing much better. Her main complaint today is pain in the base of the neck and right upper extremity. The patient has had some significant improvement with cervical epidurals in the past. Now, the pain is returning in the right upper extremity, mostly in the anterior shoulder, anterior biceps, anterior forearm, also the posterior forearm with some numbness and tingling in the thumb and first finger on the right side. The patient reports it is worse with activity, reaching above her head, lifting items with the right arm, driving a car with her right hand. The patient reports it is aching, sharp, dull, tight, shooting with some burning pain in the neck and shoulders as well as in the low back and tingling in the hand. The patient reports it is an 8 on a scale of 10 at its worst, 7 on average, 7 at its least and is 7 today. Again, low back is doing much better. She is increasing her activity with waking, doing better with work activities, sitting for longer periods, riding a car longer periods. She is doing household activities as well with much greater ease and comfort. PHYSICAL EXAMINATION: VITAL SIGNS: Today, the patient's blood pressure is 132/72, pulse 79, respirations 18, temperature 99.2 degrees Fahrenheit. Height is 5 feet 4 inches, weight is 208 pounds. GENERAL: The patient is awake, alert, oriented, appropriate, very pleasant demeanor. HEENT: Head shows normocephalic, atraumatic. Extraocular movements are intact and symmetrical. Oral cavity: Mucous membranes moist and pink. Dentition is intact. NECK: Shows anterior throat supple without palpable lymphadenopathy noted. Swallow reflex is symmetrical. CHEST: Shows normal on inspection. Breath sounds clear to auscultation bilaterally. HEART: Shows S1, S2 clear. No murmurs auscultated. ABDOMEN: Soft, nontender, nondistended. No palpable organomegaly is noted. No rebound or guarding demonstrated. BACK: Shows spine grossly in the midline, normal-appearing cervical lordotic curvature, thoracic kyphotic curvature and lumbar lordotic curvature. Cervical paraspinous muscle shows symmetrical on inspection, with palpation shows some moderate tenderness diffusely bilaterally, but only diffusely without radiation. The patient has good rotational motion of cervical spine with some minor tenderness with extension, but not with forward flexion, right or left lateral rotation which is performed past 45 degrees, closer to 90 degrees right and left. The patient's upper extremities showed deep tendon reflexes 2+ in the biceps and triceps tendons. Motor exam is strong with approximately 4 on a scale of 5 with right metal trimmer strength and 5/5 on the left. Bicep and tricep flexion likewise 4/5 right, 5/5 on the left. Peripheral pulses are 2+ radial distribution. No peripheral edema is noted bilaterally. The patient's lower extremities show deep tendon reflexes 2+ in the patellar, 1+ tendo-calcaneus tendons. Motor exam is strong with 5/5 dorsiflexion, extension, quadriceps and hamstring flexion approximately 4 on a scale of 5, but equal and symmetrical as well. Peripheral pulses are 2+ radial, 1+ posterior tibial. No peripheral edema is noted bilaterally. ASSESSMENT AND PLAN: Options were discussed with the patient. The patient's old chart was reviewed as was her current medication regimen updated. Current review of systems updated today as well. We will preauthorize the patient for a cervical epidural steroid injection as she is doing much better with her low back and legs and the right upper extremity has significant radicular component in C6-C7 dermatomal distribution. We will preauthorize for a C6-C7 translaminar cervical epidural steroid injection on her next visit. The patient in the meantime will continue doing some strengthening and stretching exercises as she has been dealing with her back as well as her neck and shoulders and upper extremities and activity as tolerated. The patient will return to the clinic in approximately 1 week. We will plan on cervical epidural steroid injection at that time. KELLI PURVIS MD DR: NASIM/verónica JOB#: [id number] / [id number]
== END | disposition home or self-care (01) ==
LOC: PNCL 08:59
PROVIDERS: ATTEND Anesthesiology
DX: M51.16 Intervertebral disc disorders with radiculopathy, lumbar region (principal); M50.10 Cervical disc disorder with radiculopathy, unspecified cervical region
CPT/HCPCS: G0463

== ENCOUNTER → 2018-07-25 | Outpatient (CLI) | payer OTHER ==
[~2018-07-25] MED LIST changes: +IOHEXOL 180 MG/ML 10 ML VIAL. ONE; +methylPREDNISolone ACETATE 40 MG/ML VIAL. ONE; +methylPREDNISolone ACETATE 80 MG/ML VIAL. ONE
--- NOTE | 2018-07-26 00:20 | PAIN ---
DATE OF SERVICE: 07/25/2018 DIAGNOSES: 1. Lumbar radiculopathy with lumbar degenerative disk disease. 2. Cervical radiculopathy with cervical degenerative disk disease. HISTORY OF PRESENT ILLNESS: The patient is a 53-year-old female who returns for followup status post preauthorization visit for cervical epidural steroid injection, as well as some significant pain in the neck and right upper extremity more than the left, radiating into the posterior shoulders, into the arms, posteriorly and anteriorly into the forearms as well posteriorly and anteriorly into the hand with some numbness and tingling. The patient describes it as aching, sharp, dull in the neck, tight, shooting in the arms, tingling, burning, cramping in the hands as well, radiating, becoming more constant, more severe, more unbearable. The patient reports it is an 8-9 on a scale of 10 at its worst, 8 on average, and 8 at its least and is an 8 today. The patient reports no new motor or sensory deficits, no new changes, no new bowel or bladder incontinence or other complaints. The patient did have lumbar epidural steroid injection on 06/20/2018 and did very well with that about 75% improvement, now chief complaint again neck and upper extremities. She has responded well to cervical epidural steroid injection in the past and would like to proceed today. The patient reports still awakens her from sleep about every 4 hours. No new motor or sensory changes or other complaints. PHYSICAL EXAMINATION: VITAL SIGNS: The patient's blood pressure 121/80, pulse 81, respirations 18, temperature 98.7 degrees Fahrenheit, weight is 211 pounds. GENERAL: The patient is awake, alert, oriented, appropriate, very pleasant demeanor. HEENT: Shows normocephalic, atraumatic. Extraocular movements are intact and symmetrical. Oral cavity: Mucous membranes moist and pink. Dentition is intact. NECK: Shows anterior throat supple without palpable lymphadenopathy noted. Swallow reflex is symmetrical. CHEST: Shows normal on inspection. Breath sounds are clear to auscultation bilaterally. HEART: Shows S1, S2 clear. No murmurs auscultated. ABDOMEN: Soft, nontender, nondistended. No palpable organomegaly is noted. No rebound or guarding demonstrated. BACK: Shows spine grossly in the midline. Cervical lordotic curvature is maintained as is thoracic kyphotic curvature and minor flattening of lumbar lordotic curvature. The patient's cervical paraspinous musculature shows symmetrical on inspection. With palpation shows some moderate tenderness diffusely in the inferior aspect of the cervical paraspinous musculature bilaterally as into the superomedial and lateral trapezius is moderately tender at this level, but no specific trigger points, no atrophy or hypertrophy, no radiation of pain. The patient shows full rotational motion of cervical spine, both laterally greater than 45 degrees right and left as well as extension and full forward flexion without difficulty or without significant pain reported. EXTREMITIES: Upper extremities shows deep tendon reflexes at 2+ in the biceps and triceps tendons. Motor exam is approximately 4 on a scale of 5 with right staff therapist and 5/5 on the left. Bicep and tricep flexion is 5/5 bilaterally. Peripheral pulses are 2+ in the radial distribution. No peripheral edema is noted bilaterally. Options were discussed with the patient. The patient's old chart was reviewed as was her current medication regimen updated. Current review of systems updated today as well. We will proceed with a cervical epidural steroid injection today with fluoroscopic guidance. Risks were again discussed including, but not limited to bleeding, infection, possibility of epidural hematoma and subsequent neurological compromise, dural puncture, headaches, spinal cord and/or nerve damage, side effects of steroid medication and poor results regarding pain control. The patient understands and wished to proceed. The patient will return to the clinic in approximately 2 weeks for followup, was counseled on return appointment, activity level and side effects to be aware of. DIAGNOSES: Cervical radiculopathy with cervical degenerative disk disease. PROCEDURE: Cervical epidural steroid injection, translaminar approach C6-C7 level using C-arm fluoroscopic guidance under sterile prep and drape using local anesthetic. MEDICATION INJECTED: A total of 120 mg Depo-Medrol plus 5 mL of preservative-free normal saline and 2 mL of Isovue for contrast. CONDITION AT DISCHARGE: Stable. The patient tolerated the procedure well, had no complications. KELLI PURVIS MD DR: NASIM/verónica JOB#: [id number] / [id number]
== END | disposition home or self-care (01) ==
LOC: PNCL 08:28
PROVIDERS: ATTEND Anesthesiology
DX: M50.123 Cervical disc disorder at C6-C7 level with radiculopathy (principal); M51.16 Intervertebral disc disorders with radiculopathy, lumbar region; Z88.6 Allergy status to analgesic agent; Z88.8 Allergy status to other drugs, medicaments and biological substances
CPT/HCPCS: 62321; J1030; J1040; Q9965

== ENCOUNTER → 2018-09-12 | Outpatient (CLI) | payer OTHER ==
--- NOTE | 2018-09-12 22:40 | PAIN ---
DATE OF SERVICE: 09/12/2018 PROGRESS NOTE FOR PAIN CLINIC DIAGNOSES: 1. Lumbar radiculopathy with lumbar degenerative disk disease. 2. Cervical radiculopathy with cervical degenerative disk disease. HISTORY OF PRESENT ILLNESS: The patient is a 53-year-old female who returns for followup status post lumbar and cervical epidural steroid injections, most recently lumbar epidural steroid injection on 06/20/2018. The patient did well with about 75% improvement initially. The pain is returning now in the low back, worse in the right than the left lower extremity, posterior gluteus, posterior thigh, posterior calf, but also present in the left side, also has some pain in her left knee since her last visit. The patient reports she had a shingles outbreak on the right side of her face, which is clearing up now since her last visit as well. Otherwise, no new motor or sensory deficits. Pain was decreased for several weeks, but the pain is returning now to a fairly significant level in the low back and right leg. The patient reports pain is 8 on a scale of 10 at its worst, 7-8 on average, 7 at its least and is a 7 today. The patient reports it is an aching, sharp, tight, dull, shooting, cramping, stabbing, tingling, burning, radiating, sometimes constant and severe with walking and standing, better with sitting or lying down. Generally, it does not awaken her from sleep at night often. She continues to work at home where she can change positions, relax and stand or sit or lie down when she needs to. The patient reports this does fairly well for her as far as her ability to continue working. The patient reports no new motor or sensory deficits, no new bowel or bladder incontinence or other complaints. PHYSICAL EXAMINATION: VITAL SIGNS: The patient's blood pressure is 130/75, pulse 83, respirations are 18, temperature 98.2 degrees Fahrenheit. Height is 5 feet 4 inches, weight is 212 pounds. GENERAL: The patient is awake, alert, oriented, appropriate, very pleasant demeanor. HEENT: Shows normocephalic, atraumatic. Extraocular movements are intact and symmetrical. Oral cavity: Mucous membranes moist and pink. Dentition is intact. NECK: Shows anterior throat supple without palpable lymphadenopathy noted. Swallow reflex symmetrical. CHEST: Shows normal on inspection. Breath sounds clear to auscultation bilaterally. HEART: Shows S1, S2 clear. No murmurs auscultated. ABDOMEN: Soft, nontender, nondistended. No palpable organomegaly is noted. No rebound or guarding demonstrated. BACK: Shows spine grossly in the midline. Normal appearing thoracic kyphosis and minor flattening of lumbar lordotic curvature. Lumbar paraspinous muscle shows symmetrical on inspection, on palpation shows some moderate tenderness diffusely bilaterally, but only diffusely without radiation. The patient has good rotational motion of lumbar spine, both laterally as well as extension and flexion without significant difficulty. EXTREMITIES: Lower extremities show deep tendon reflexes at 1+ in the patellar and tendo calcaneus tendons. Motor exam is approximately 4 on a scale of 5, but equal and symmetrical dorsiflexion, extension, quadriceps and hamstring flexion. Peripheral pulses are 1+ posterior tibial. No peripheral edema is noted bilaterally. Options were discussed with the patient. The patient's old chart was reviewed as her current medication regimen updated. Current review of systems updated today as well. We will proceed with a lumbar epidural steroid injection today as the third total in this series. The risks were again discussed including, but not limited to, bleeding, infection, possibility of epidural hematoma, subsequent neurological compromise, dural puncture, headaches, spinal cord and/or nerve damage, side effects of steroid medication and poor results regarding pain control. The patient understands and wished to proceed. The patient will return to the clinic in approximately 2 weeks for followup. She was counseled as to return appointment, activity level and side effects to be aware of. DIAGNOSIS: Lumbar radiculopathy with lumbar degenerative disk disease. PROCEDURE: Lumbar epidural steroid injection, translaminar approach at L5-S1 level using C-arm fluoroscopic guidance under sterile prep and drape using local anesthetic. MEDICATION INJECTED: A total of 120 mg Depo-Medrol plus 10 mL of preservative-free normal saline and 2 mL of contrast. CONDITION ON DISCHARGE: Stable. The patient tolerated the procedure well, had no complications. KELLI PURVIS MD DR: NASIM/verónica JOB#: [id number] / [id number]
== END | disposition home or self-care (01) ==
LOC: PNCL 07:42
PROVIDERS: ATTEND Anesthesiology
DX: M51.16 Intervertebral disc disorders with radiculopathy, lumbar region (principal); M50.10 Cervical disc disorder with radiculopathy, unspecified cervical region; Z88.6 Allergy status to analgesic agent; Z88.8 Allergy status to other drugs, medicaments and biological substances
CPT/HCPCS: 62323; J1030; J1040; Q9965